=== PATIENT | male | born 1975 | race Caucasian/White ===

== ENCOUNTER 2019-10-02 12:18 | Emergency (ER) | payer OTHER ==
[2019-10-02] MEDS ORDERED: TRUVADA 200 MG-300 MG TABLET PO ONE (12:19)
--- NOTE | 2019-10-02 12:42 | ERPHSYRPT ---
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 The needle stick was to the left middle finger. He was immediately cleaned as per protocol. The source of the needle was considered above normal risk. As a consequence the patient has elected to start medication pending identification of the source as HIV status. Timing/Duration: today Severity: mild Allergies/Adverse Reactions: No Known Drug Allergies Allergy (Unverified 10/02/19 12:20) Home Medications: Omeprazole 30 mg PO DAILY 10/02/19 [History] Hx Tetanus, Diphtheria Vaccination/Date Given: No Hx Influenza Vaccination/Date Given: No Hx Pneumococcal Vaccination/Date Given: No Immunizations Up to Date: No - Review of Systems Constitutional: No Fever, No Chills Eyes: No Symptoms Ears, Nose, & Throat: No Symptoms Respiratory: No Cough, No Dyspnea Cardiac: No Chest Pain, No Edema, No Syncope Abdominal/Gastrointestinal: No Abdominal Pain, No Nausea, No Vomiting, No Diarrhea Genitourinary Symptoms: No Dysuria Musculoskeletal: No Back Pain, No Neck Pain Skin: No Rash Neurological: No Dizziness, No Focal Weakness, No Sensory Changes Psychological: No Symptoms Endocrine: No Symptoms All Other Systems: Reviewed and Negative - Past Medical History Neurological History: No Pertinent History Cardiac History: High Cholesterol Respiratory History: Bronchitis Endocrine Medical History: No Pertinent History Musculoskeletal History: No Pertinent History - Nursing Vital Signs Nursing Vital Signs: Initial Vital Signs Temperature 98.0 F 10/02/19 12:21 Pulse Rate 86 10/02/19 12:21 Respiratory Rate 18 10/02/19 12:21 Blood Pressure 138/94 10/02/19 12:21 O2 Sat by Pulse Oximetry 97 10/02/19 12:21 Pain Scale Pain Intensity 0 - Physical Exam Back Exam: normal range of motion, other (small puncture wound left middle finger distal pad), No CVA tenderness, No vertebral tenderness Ordered Tests: Active Orders 24 hr Category Date Time Status Wound Care STAT Care 10/02/19 12:49 Active CBC W DIFF Stat Lab 10/02/19 12:45 Ordered CMP Stat Lab 10/02/19 12:45 Ordered Medication Summary Generic Name Dose Route Start Last Admin Trade Name Freq PRN Reason Stop Dose Admin Emtricitabine/Tenofovir 1 tablet 10/03/19 10:00 Truvada 200 Mg-300 Mg Tablet PO 10/04/19 10:01 DAILY RACHEAL Raltegravir 400 mg 10/02/19 12:45 Isentress PO 11/01/19 12:44 STAT RACHEAL Raltegravir 400 mg 10/02/19 22:00 Isentress PO 10/04/19 22:01 BID RACHEAL Discontinued Medications Generic Name Dose Route Start Last Admin Trade Name Freq PRN Reason Stop Dose Admin Emtricitabine/Tenofovir 1 tablet 10/02/19 12:45 Truvada 200 Mg-300 Mg Tablet PO 10/02/19 12:46 STAT STA Emtricitabine/Tenofovir Confirm 10/02/19 12:51 Truvada 200 Mg-300 Mg Tablet Administered 10/02/19 12:52 Dose 2 tablet .ROUTE .STK-MED ONE - Progress Progress: unchanged - Departure Departure Disposition: Home Clinical Impression: Needle stick injury Condition: Stable Critical Care Time: No Referrals: ANISH FORBES [Primary Care Provider] -
[2019-10-02] MEDS ORDERED: ISENTRESS PO SCH ×2 (12:45→22:00)
[2019-10-02] MEDS ORDERED: TRUVADA 200 MG-300 MG TABLET PO STA (12:45)
[2019-10-02 12:47] VITALS: BP 138/94; PULSE 86; O2SAT 97
[2019-10-02] MEDS ORDERED: TRUVADA 200 MG-300 MG TABLET ONE (12:51)
[2019-10-02] MEDS ORDERED: ISENTRESS ONE (12:51)
[2019-10-02 13:15] LABS: Absolute Neutrophil Ct (ANC) 3.71 (1.4-6.9); BASOPHIL % 0.5 % (0.0-0.4); Basophil (Absolute #) 0.03 (0-0.4); Eosinophil % 1.6 % (0.00-5.0); Eosinophil (Absolute #) 0.09 (0-0.5); Hematocrit 41.1 % (42-50); Hemoglobin 14.5 gm/dl (12.5-18.0); Lymphocyte (Absolute #) 1.44 (1.0-4.6); Lymphocytes % 25.7 % (24.0-44.0); Mean Cell Volume 90.7 fl (78-100); Mean Corpuscular Hgb Concent. 35.3 g/dl (32-36); Mean Platelet Volume 12.9 fl (6-9.5); Monocyte (Absolute #) 0.34 (0.0-1.3); Monocytes % 6.1 % (0.0-12.0); Neutrophil % 66.1 % (36.0-66.0); Platelet Count 141 K/mm3 (150-450); Red Blood Count 4.53 M/mm3 (4.1-5.6); Red Cell Distribution Width 12.6 % (11.5-14.0); White Blood Count 5.6 K/mm3 (4.0-10.5)
[2019-10-02 13:27] LABS: ALBUMIN 4.9 g/dL (3.5-5.0); ALKALINE PHOSPHATASE 65 U/L (38-126); ANION GAP 14.3 MEQ/L (5-15); BLOOD UREA NITROGEN 14 mg/dL (9-20); CHLORIDE 101 mmol/L (98-107); Carbon Dioxide 31 mmol/L (22-30); Creatinine 1 0.87 mg/dL (0.66-1.25); Glucose 107 mg/dL (74-106); Potassium 3.9 mmol/L (3.5-5.1); SGOT/AST 20 U/L (17-59); SGPT/ALT 21 U/L (0-50); SODIUM 142 mmol/L (137-145); Total Protein 7.9 g/dL (6.3-8.2)
[2019-10-03] MEDS ORDERED: TRUVADA 200 MG-300 MG TABLET PO SCH (10:00)
[2019-10-04 07:11] LABS: Hepatitis B Sur Ag Screen Non Reactive (Non Reactive); Hepatitis B Surface Ab.Quant >1000.00 mIU/mL (0.00-8.49); Hepatitis C Antibody by EIA Non Reactive (Non Reactive)
[2019-10-04 07:12] LABS: HIV Antigen/Antibody Combo Non Reactive (Non Reactive)
== END 2019-10-02 14:58 | disposition home or self-care (01) ==
LOC: ER - EH 12:18
DX: S61.233A Puncture wound without foreign body of left middle finger without damage to nail, initial encounter (principal); W46.1XXA Contact with contaminated hypodermic needle, initial encounter; Y93.F9 Activity, other caregiving; Y92.230 Patient room in hospital as the place of occurrence of the external cause
CPT/HCPCS: 36415; 80053; 85025; 86317; 86701; 86702; 86803; 87340; 87389; 99284; A9270-GY